=== PATIENT | female | born 1995 | race African-American/Black ===

== ENCOUNTER 2016-08-14 04:42 | Inpatient (IN) | payer OTHER ==
--- NOTE | ~2016-08-14 | PA ---
Unit #: [id number] #: [id number] Patient: PIERRE CABALLERO [id number] [facility] [address] [place] [address] [id number] MR#: [id number] NAME: PIERRE CABALLERO. ROOM: P176 Age: 21 Sex: F Admission Date: 08/14/2016 : 1995 Date of Assessment: Attending Physician: Alexis Alonzo M.D. Admitting Physician: Alexis Alonzo M.D. PSYCHIATRIC ASSESSMENT UINFORMANT The patient reliability, fair; chart reliability, good. CHIEF COMPLAINT Overdose. HISTORY OF PRESENT ILLNESS Ms. Pierre Caballero is a 21-year-old female, admitted after taking an overdose. The patient reported that she was having a bad day and overdose. The patient currently denied any suicidal or homicidal ideation. The patient reported several stress reported she took 10 Percocet, lives with a best friend, has a good support from his mother. The patient reports that she was fighting with a roommate. She moved out. The patient dropped out OD school due to distress. Family lives in [place]. The patient feeling overwhelmed and depressed in the last 2 months. The patient needing inpatient admission at this time for psychiatric stabilization. PAST PSYCHIATRIC HISTORY Unremarkable for any history of previous treatment. FAMILY HISTORY AND SOCIAL HISTORY The patient lives with a roommate and poor support system. No history of any abuse. MEDICAL HISTORY Unremarkable for recent overdose of pills. No chronic medical condition. Musculoskeletal; muscle strength and tone, no atrophy or abnormal movement. Gait normal. MEDICATION HISTORY None. ALLERGIES No known drug allergies. SUBSTANCE ABUSE HISTORY None. REVIEW OF SYSTEMS HEENT: Eyes, clear. Ears, nose, mouth, and throat; clear. CARDIOVASCULAR: Unremarkable. RESPIRATORY: Unremarkable. Unit #: [id number] #: [id number] Patient: PIERRE CABALLERO GI: Unremarkable. : Unremarkable. SKIN: Unremarkable. LYMPH NODE: Unremarkable. NEUROLOGIC: Unremarkable. ENDOCRINE: Unremarkable. HEMATOLOGIC: Unremarkable. ALLERGIC/IMMUNOLOGIC: Unremarkable. MUSCULOSKELETAL: Muscle strength and tone, no atrophy or abnormal movement. Gait normal. MENTAL STATUS EXAMINATION CONSTITUTIONAL: Measurement of vital signs; temperature is 98.4, pulse 69, respirations 16, blood pressure 117/69, height 5 feet 6 inches, weight 180 pounds. GENERAL APPEARANCE: The patient dressed casually. The patient did not show any facial deformity. MUSCULOSKELETAL: Please see above. PSYCHIATRIC EXAMINATION Description of speech; regular rate, normal volume, normal articulation, coherent. Description of thought process, goal directed. Description of association, intact. Description of abnormal psychotic thinking; the patient denied any hallucination or delusions, but mood lability, sad, depressed, recent suicide attempt by taking an overdose. Description of the patient's judgment, concerning everyday activity, poor. Social situation, poor. Currently denied any suicidal ideation or any psychotic symptom. Oriented in time, place, and person. Complete mental status examination; oriented in time, place, and person. Recent and remote memory, fair. Attention span and concentration, fair. Language, able to name object and repeat phrases. Fund of knowledge, aware of current event, passive vocabulary intact. Mood and affect, sad and dysphoric. Insight and judgment, fair to poor. ASSETS AND LIABILITIES Assets, the patient is articulate and able to take care of her ADL. Liability, history of depression. ADMITTING DIAGNOSES Psychiatric: Mood specified, not otherwise specified, F32.9; rule out major depressive disorder. Secondary diagnosis: Deferred. Medical diagnosis: None. Stressors: Psychosocial stressors. PSYCHIATRIC PLAN AND TREATMENT GOAL AND DISCHARGE PLAN 1. Advised to admit the patient on the inpatient unit. Provide safe, supportive, and structured environment. 2. Ordered labs; CBC, CMP, UA, UDS, and test. 3. Precaution for self-harm. 4. The patient to attend all the programing group therapy, individual therapy, medication management. If needed, treatment goal to attain euthymic mood, gain insight into her problem, and learn coping skills. 5. Discharge plan; plan to stabilize the patient and consider followup in Unit #: [id number] #: [id number] Patient: PIERRE CABALLERO outpatient program. ESTIMATED LENGTH OF STAY 3 to 5 days. Dictated by... Alexis Alonzo M.D. CRYSTAL/coty TD: 08/14/2016 22:12 JOB #: [id number] PSYCHIATRIC ASSESSMENT Page 1 of 1 X Alexis Alonzo MD PSYCHIATRIC ASSESSMENT
--- NOTE | ~2016-08-14 | DS ---
Unit #: [id number] #: [id number] Patient: DRAGAN MARTINEZ [id number] [facility] [address] [place] [address] [id number] MR#: [id number] NAME: DRAGAN MARTINEZ. ROOM: P176 Age: 21 Sex: F Admission Date: 08/14/2016 : 1995 Discharge Date: 08/15/2016 Attending Physician: Alexis Alonzo M.D. Primary Care Physician: Generic Doctor Not In System DISCHARGE SUMMARY REASON FOR ADMISSION Depression and overdose. DIAGNOSTIC STUDIES LABORATORY RESULTS: Unremarkable. HOSPITAL COURSE The patient was admitted to inpatient unit on 08/14/2016 and discharged on 08/15/2016. The patient was treated with group therapy, individual therapy, and medication management. The patient responded well with the above modalities of treatment. Subsequently, the patient was discharged with a plan to follow up in outpatient program. DISCHARGE MEDICATIONS None. DISCHARGE DIAGNOSES Psychiatric: 1. Mood disorder, not otherwise specified, F32.9. 2. Rule out major depressive disorder, F33.2. Secondary diagnosis: Deferred. Medical diagnosis: None. Stressors: Psychosocial stressors. DISCHARGE INSTRUCTIONS The patient is to follow up in outpatient clinic as per social work nurse. CONDITION ON DISCHARGE The patient was pleasant and cooperative. Denied any psychotic symptom or any suicidal ideation. PROGNOSIS Guarded. DIET AND ACTIVITY As tolerated. Dictated by... Alexis Alonzo M.D. Unit #: [id number] #: [id number] Patient: DRAGAN MARTINEZ CARMELITAC/modl TD: 08/30/2016 14:27 JOB #: [id number] DISCHARGE SUMMARY Page 1 of 1 X Alexis Alonzo MD X DISCHARGE SUMMARY
--- NOTE | ~2016-08-14 | HP ---
Unit #: [id number] #: [id number] Patient: PIERRE MARTINEZ [id number] [place] [address] [id number] MR#: [id number] NAME: PIERRE MARTINEZ. ROOM: P176 Age: 21 Sex: F Admission Date: 08/14/2016 : 1995 Attending Physician: Alexis Alonzo M.D. Admitting Physician: Alexis Alonzo M.D. Primary Care Physician: Generic Doctor Not In System HISTORY AND PHYSICAL HISTORY OF PRESENT ILLNESS Pierre is a 21-year-old female admitted on 08/14/2016 to [facility] for attempted suicide on Percocet. PAST MEDICAL HISTORY None. PAST SURGICAL HISTORY None. SOCIAL HISTORY Denies tobacco, alcohol, or illegal drug use. She is currently single and living with her mother. FAMILY HISTORY Noncontributory. REVIEW OF SYSTEMS CONSTITUTIONAL: No fever or chills. HEENT: Denies any sore throat, ear pain or runny nose. CARDIOVASCULAR: Denies chest pain, irregular heart rhythm or palpitations. CHEST: Denies shortness of breath or cough. No hemoptysis. GASTROINTESTINAL: Denies nausea, vomiting, diarrhea or chronic constipation. ENDOCRINE: Denies history of increased thirst or urination. No recent significant weight loss or gain. GENITOURINARY: Denies dysuria, frequency, or hematuria. SKIN: Denies any rashes. HEMATOLOGIC: Denies history of increased bleeding or bruising. MUSCULOSKELETAL: Denies any hot, swollen joints. No generalized muscle pain. NEUROLOGIC: Denies problems with vision or speech. No frequent, severe headaches. No numbness, tingling or weakness in any extremities. Denies loss of bladder or bowel control. CURRENT MEDICATIONS None. ALLERGIES None. PHYSICAL EXAMINATION GENERAL: Alert, oriented, no acute distress. Unit #: [id number] #: [id number] Patient: PIERRE MARTINEZ VITAL SIGNS: Blood pressure 101/71, heart rate 73. HEIGHT: 5 feet 6. WEIGHT: 150 pounds. SKIN: Warm, dry. No rashes or lesions, track fischer, cuts, etc. HEENT: Normocephalic. TMs not viewed. Oronasal passages clear. Conjunctivae clear. PERRLA. EOM is intact. NECK: No lymphadenopathy or thyromegaly. HEART: Regular rate and rhythm. No murmur, gallop, or rub. LUNGS: Clear to auscultation bilaterally. ABDOMEN: Soft, nontender without palpable masses or hepatosplenomegaly. : Not assessed. EXTREMITIES: No evidence of cyanosis, clubbing, or edema. Moves all extremities independently without obvious deficit. NEUROLOGICAL: Grossly within normal limits. Cranial Nerves: II: Visual stuart are intact. III, IV AND : Extraocular movements are intact. Pupils are equal, round and reactive to light. V: Facial sensation is grossly normal. VII: Facial movements and expression are normal. VIII: Auditory acuity grossly intact. IX, X: Uvula is midline. Phonation is normal. XI: Patient shrugs shoulders and turns head normally. XII: Tongue protrudes in the midline. Sensory and Motor Function: Sensory and motor sensation is grossly normal. Motor: moves all extremities well. Coordination: Gait is normal. Deep Tendon Reflexes: Intact. IMPRESSION Psychiatric admission. RECOMMENDATIONS PSYCHIATRIC: Per psychiatrist. MEDICAL: No contraindication to participate in this facility's activities. MEDICAL PROGNOSIS Good. MEDICAL CONDITION Stable. Dictated by... Nina Short TD: 08/14/2016 15:33 JOB #: [id number] Unit #: [id number] #: [id number] Patient: PIERRE MARTINEZ HISTORY AND PHYSICAL Page 1 of 1 X JOSE MIGUEL ROBLERO APRN HISTORY AND PHYSICAL
--- NOTE | ~2016-08-14 | PN ---
Unit #: [id number] #: [id number] Patient: DRAGAN MARTINEZ [id number] [facility] [address] [place] [address] [id number] MR#: [id number] NAME: DRAGAN MARTINEZ. ROOM: P176 Age: 21 Sex: F Admission Date: 08/14/2016 : 1995 Attending Physician: Alexis Alonzo M.D. Admitting Physician: Alexis Alonzo M.D. Primary Care Physician: Generic Doctor Not In System [facility] PROGRESS NOTES DATE 08/15/2016 DISCUSSION Ms. Jay is a 21-year-old female. The patient interviewed, chart reviewed, and obtained information from the nursing staff. The patient was compliant and cooperative. Mood sad and dysphoric, flat affect, and guarded. The patient was admitted after overdose, able to maintain safe behavior. The patient currently denied any suicidal or homicidal ideation. Cooperative, withdrawn, isolative. Patient was somewhat frustrated for not getting discharged yesterday but denied any thoughts of harming self or others. The patient was explained about the reasoning. REVIEW OF SYSTEMS Complete review of systems unremarkable. MENTAL STATUS EXAMINATION General appearance: Patient dressed casually. Attention span and concentration, fair. Oriented to place and person. Mood and affect, sad and dysphoric. Speech, monotone. Thought process, goal-directed. The patient denied any thoughts of harming self or others or any psychotic symptoms. Recent and remote memory poor. Insight and judgment poor. DIAGNOSIS Mood disorder, NOS. ASSESSMENT/PLAN Advised to continue with the current medication and therapeutic protocol and will monitor response to medication, and make further adjustment of medication. Dictated by... Leonela Lagunas/rogelio TD: 08/17/2016 08:03 JOB #: [id number] Unit #: [id number] #: [id number] Patient: DRAGAN MARTINEZ [facility] PROGRESS NOTES Page 1 of 1 X Alexis Alonzo MD PROGRESS NOTE
== END 2016-08-15 13:20 | disposition home or self-care (01) | DRG 918 ==
LOC: P1E 04:42
DX: T39.1X2A Poisoning by 4-Aminophenol derivatives, intentional self-harm, initial encounter (principal); F39 Unspecified mood [affective] disorder; F32.9 Major depressive disorder, single episode, unspecified; Y92.009 Unspecified place in unspecified non-institutional (private) residence as the place of occurrence of the external cause